=== PATIENT | male | born 1985 | race Caucasian/White ===

== ENCOUNTER 2017-04-11 14:21 | Inpatient (IN) | payer SELFPAY ==
[~2017-04-11] VITALS: Ht 193 cm; Wt 126.0 kg
[2017-04-11] MEDS ORDERED: No Medications (15:00)
[2017-04-11 15:21] LABS: MEAN CORPUSCULAR HEMOGLOBIN 30.6 pg (27.0-33.0); MEAN CORPUSCULAR HGB CONC 35.2 g/dl (32.0-36.5); MEAN CORPUSCULAR VOLUME 86.8 fl (80.0-96.0); PLATELET COUNT, AUTOMATED 283 10^3/uL (150-450); WHITE BLOOD COUNT 9.8 10^3/uL (4.0-10.0)
[2017-04-11 16:06] LABS: ALBUMIN 3.9 GM/DL (3.2-5.2); ALBUMIN/GLOBULIN RATIO 1.11 (1.00-1.93); ALKALINE PHOSPHATASE 100 U/L (45-117); ALT/SGPT 42 U/L (12-78); ANION GAP 4 MEQ/L (8-16); AST/SGOT 22 U/L (7-37); BILIRUBIN,DIRECT 0.3 MG/DL (0.0-0.2); BILIRUBIN,TOTAL 1.4 MG/DL (0.2-1.0); BLOOD UREA NITROGEN 12 MG/DL (7-18); CALCIUM LEVEL 8.8 MG/DL (8.5-10.1); CARBON DIOXIDE LEVEL 32 MEQ/L (21-32); CHLORIDE LEVEL 106 MEQ/L (98-107); CREATININE FOR GFR 1.13 MG/DL (0.70-1.30); GLOMERULAR FILTRATION RATE > 60.0 (>60); GLUCOSE, FASTING 84 MG/DL (70-105); POTASSIUM SERUM 4.5 MEQ/L (3.5-5.1); SODIUM LEVEL 142 MEQ/L (136-145); TOTAL PROTEIN 7.4 GM/DL (6.4-8.2)
[2017-04-11 16:17] LABS: METHADONE URINE NEGATIVE (NEGATIVE)
[2017-04-11 20:40] VITALS: BP 143/79
[2017-04-11] MEDS ORDERED: OLANZapine 5 MG TAB PO ONE (22:00)
[2017-04-11] MEDS ORDERED: MAALOX 30 ML SUSP *UDC PO PRN (22:00)
[2017-04-11] MEDS ORDERED: ACETAMINOPHEN TAB 650MG DOSE (2X325MG) PO PRN (22:00)
[2017-04-11] MEDS ORDERED: MOM 30ML SUSPENSION UDC PO PRN (22:00)
[2017-04-11] MEDS: traZODone 50 MG TAB PO PRN (22:13)
[2017-04-12 06:00] VITALS: BP 109/59
--- NOTE | 2017-04-12 08:53 | HPEPDOC ---
[facility] Medical History & Physical Date of Admission Apr 11, 2017 History and Physical PCP: [facility]. ATTENDING: Dr. Marty Lopez HPI: 31yoM admitted to [facility] for unspecified depressive disorder, being medically examined today. Patient complains of lower abdominal discomfort, states he had diarrhea yesterday 6. Denies fevers or chills. States he has been eating and drinking. Denies urinary complaints. The patient states this is achy pain across his lower abdomen. Denies any fevers, chills, weakness, fatigue, ARELLANO, CP, SOB, cough, palpitations, abdominal pain, N/V/D or changes in bowel or bladder habits. PMHx: Depression Anxiety Substance use PSHX: Denies SOCHX: Resides in: [facility]. Marital Status: Single Kids: 7, ages 1-14. Pt lives with fiance and 7 children. Employment: Unemployed. Tobacco use: Uses e-cigarette ETOH: Monthly 10 drinks or more Illicit Drugs: Marijuana, methamphetamine, crack cocaine. IV Drug Use: Denies Tattoos done unprofessionally: Denies FAMHX: Mother: Alive, well Father: Alive, well Siblings: Alive, well Children: Alive, well Unexpected deaths due to medical reasons: None. ROS: As noted in HPI, otherwise 11pt ROS of systems reviewed and unremarkable . PE: GEN: 31 yo M, appears stated age. Well-nourished, well developed. No acute distress. Alert and oriented x 3. Pleasant, interactive. HEENT: Normocephalic, atraumatic. Pupils are equal, round, and reactive to light. Extraocular movements are intact. No nystagmus appreciated. Sclera are nonicteric. Conjunctiva without injection. Nose midline. Nasal turbinates without bogginess. EACs both patent BL. TMs both visualized and christiansen with good cone of light, no bulging or erythema. No facial asymmetry. Moist mucous membranes. Dentition fair. Pharynx pink and moist, no cobblestoning. Neck supple , trachea midline. No lymphadenopathy or thyromegaly appreciated. CHEST: Regular rate and rhythm, +S1, +S2 LUNGS: Clear to auscultation bilaterally. No wheezes, rales, or rhonchi. Breathing appears symmetric and easy. Patient is speaking in full sentences. No accessory muscle use. ABD: Round, soft, patient with mild tenderness across the lower abdominal area, non-distended. +Bowel sounds throughout. No rebound or guarding. No costovertebral angle tenderness. EXT: Pulses 2+ bilaterally dorsalis pedis and radial. No lower extremity edema appreciated. SKIN: [place], dry, warm. Capillary refill <2sec. No rashes. NEURO: Alert and oriented x 3. Cranial nerves III-XII are intact. No focal deficits appreciated. EKG: Pending A&P: 31yoM admitted to [facility] for unspecified depressive disorder 1. Psych. Plan per Psychiatry. Obtain baseline EKG to assure the safety of psychiatric medications as they can prolong the QT interval. 2. Nicotine dependence. Patch available. 3. Abdominal pain. Update CBC/CMP, amylase, lipase. UA/urine culture. GI panel. CT abdomen and pelvis. 4. Follow up with PCP on discharge. 5. Substance use. Per psychiatry. 6. Staff member Ed present throughout exam. Vital Signs Vital Signs Date Time Temp Pulse Resp B/P (MAP) Pulse Ox O2 Delivery O2 Flow Rate FiO2 04/12/17 06:00 98.7 61 16 109/59 (76) 04/11/17 20:40 98 Room Air Laboratory Data Labs 24H Laboratory Tests 2 04/11/17 15:08: Urine Amphetamines Screen NEGATIVE, Urine Benzodiazepines Screen NEGATIVE, Urine Opiates Screen NEGATIVE, Urine Methadone Screen NEGATIVE, Urine Barbiturates Screen NEGATIVE, Urine Phencyclidine Screen NEGATIVE, Urine Cocaine Metabolite Screen NEGATIVE, Urine Cannabinoids Screen POSITIVEH 04/11/17 15:12: Nucleated Red Blood Cells % (auto) 0.0, Anion Gap 4L, Glomerular Filtration Rate > 60.0, Calcium Level 8.8, Aspartate Amino Transf (AST/SGOT) 22, Alanine Aminotransferase (ALT/SGPT) 42, Alkaline Phosphatase 100, Total Bilirubin 1.4H, Direct Bilirubin 0.3H, Total Protein 7.4, Albumin 3.9, Albumin/Globulin Ratio 1.11, Thyroid Stimulating Hormone (TSH) 1.170, Salicylates Level < 1.7L, Acetaminophen Level < 2.0L, Ethyl Alcohol Level < 0.003 CBC/BMP Laboratory Tests 04/11/17 15:12 Red Blood Count 4.84, Mean Corpuscular Volume 86.8, Mean Corpuscular Hemoglobin 30.6, Mean Corpuscular Hemoglobin Concent 35.2, Red Cell Distribution Width 12.0 Home Medications No Active Prescriptions or Reported Meds Allergies Coded Allergies: Penicillins (Verified Adverse Reaction, Intermediate, seizures, 04/11/17) Jennifer Boyd Apr 12, 2017 08:53
[2017-04-12] MEDS: NICOTINE 21MG/24HR 1 EA TRANSDERMAL TD SCH (09:00)
[2017-04-12 10:01] LABS: BASO # 0.1 10^3/uL (0.0-0.2); BASO % 0.9 % (0.0-1.0); EOS # 0.5 10^3/uL (0.0-0.50); EOS % 7.1 % (0.0-3.0); IMMATURE GRANULOCYTE % 0.1 % (0-0); LYMPH # 2.3 10^3/uL (1.5-4.5); LYMPH % 32.7 % (24.0-44.0); MEAN CORPUSCULAR HEMOGLOBIN 30.4 pg (27.0-33.0); MEAN CORPUSCULAR HGB CONC 34.1 g/dl (32.0-36.5); MEAN CORPUSCULAR VOLUME 89.1 fl (80.0-96.0); MONO # 0.5 10^3/uL (0.0-0.8); MONO % 6.5 % (0.0-5.0); NEUTROPHILS # 3.6 10^3/uL (1.8-7.7); NEUTROPHILS % 52.7 % (36.0-66.0); PLATELET COUNT, AUTOMATED 265 10^3/uL (150-450); RED CELL DISTRIBUTION WIDTH 12.1 % (11.5-14.5); WHITE BLOOD COUNT 6.9 10^3/uL (4.0-10.0)
[2017-04-12 10:50] LABS: ALBUMIN 3.6 GM/DL (3.2-5.2); ALBUMIN/GLOBULIN RATIO 1.03 (1.00-1.93); ALKALINE PHOSPHATASE 89 U/L (45-117); ALT/SGPT 39 U/L (12-78); AMYLASE 45 U/L (25-115); ANION GAP 4 MEQ/L (8-16); AST/SGOT 24 U/L (7-37); BILIRUBIN,TOTAL 1.5 MG/DL (0.2-1.0); BLOOD UREA NITROGEN 12 MG/DL (7-18); CALCIUM LEVEL 9.5 MG/DL (8.5-10.1); CARBON DIOXIDE LEVEL 34 MEQ/L (21-32); CHLORIDE LEVEL 104 MEQ/L (98-107); CREATININE FOR GFR 1.18 MG/DL (0.70-1.30); GLOMERULAR FILTRATION RATE > 60.0 (>60); GLUCOSE, FASTING 77 MG/DL (70-105); POTASSIUM SERUM 4.3 MEQ/L (3.5-5.1); SODIUM LEVEL 142 MEQ/L (136-145); TOTAL PROTEIN 7.1 GM/DL (6.4-8.2)
--- NOTE | 2017-04-12 10:52 | REP ---
CT ABDOMEN PELVIS WITHOUT CONTRAST: 04/12/2017 CLINICAL HISTORY: Periumbilical abdominal pain. TECHNIQUE: Noncontrast imaging through the abdomen pelvis with both coronal and sagittal reconstructions provided. CT ABDOMEN: Lung bases remain clear. Heart is not enlarged. There is no pericardial thickening or effusion. No hiatal hernia. Stomach filled with retained food. There is no splenomegaly or focal splenic lesion. A small accessory splenule is seen anterior to the upper pole of the spleen. No hepatomegaly or focal hepatic lesion. No biliary dilatation. No adjacent ascites. The gallbladder without calcified stone or mass. No stone in the lux hepatis or mass. Pancreas intact. The aorta without aneurysm. There is no periaortic or retroperitoneal lymphadenopathy. Lung window review of all CT slices shows no perforation, free air, abscess or mass with associated air. Small bowel loops grossly intact. No abnormal infiltration of the mesentery . The colon without colitis or diverticulitis. Bone windows show lumbar and lower thoracic levels without compression deformity of destructive lesion. There is no spondylolysis or spondylolisthesis. Visualized ribs intact. CT PELVIS: The pelvis, sacrum, SI joints, hips and lumbosacral junction grossly intact. Pubic rami, symphysis pubis are intact. There are a few tiny bone islands evident. There are no dilated small bowel loops in the pelvis. The colon shows scattered stool and gas throughout the abdomen and pelvis. No colitis or diverticulitis. No abdominal or pelvic adenopathy, ventral or inguinal hernia nor pathologic sized inguinal adenopathy. Distal left colon, sigmoid and rectum intact. IMPRESSION: 1. There is no sign of colitis, diverticulitis, appendicitis, abscess, adenopathy or mass. Solid organs in the upper abdomen intact. No hiatal hernia. Lung bases clear. Bones without acute finding. Some minor degenerative changes at the lumbosacral junction. Nothing acute. Signed by Cameron Puri MD 04/13/2017 05:53 P
[2017-04-12 12:21] VITALS: BP 145/91
[2017-04-12] MEDS ORDERED: LOPERAMIDE 2 MG CAP PO PRN (16:00)
[2017-04-12] MEDS ORDERED: FLUoxetine 10 MG CAP PO ONE (16:00)
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
[2017-04-12 18:00] VITALS: BP 138/72
--- NOTE | 2017-04-12 18:41 | ECGEPIP ---
Stationary ECG Study [facility] Test Date: 2017-04-12 Pat Name: CHERRI HENDERSON Department: Room: [place] [address] Gender: M Table Filler: AMANDA : 1985 Requested By: Jennifer Boyd Order Number: [id number] Reading MD: Tuan Lang Measurements Intervals [place] Rate: 62 P: 51 OH: 158 QRS: 41 QRSD: 97 T: 16 QT: 344 QTc: 350 Interpretive Statements SINUS RHYTHM EARLY REPOLARIZATION Normal for age Electronically Signed On 04-12-2017 18:40:58 EST by Tuan Lang
[2017-04-12 21:00] VITALS: BP 136/82
[2017-04-12] MEDS: traZODone 50 MG TAB PO PRN (21:23)
[2017-04-13 07:00] VITALS: BP 103/62
[2017-04-13] MEDS: NICOTINE 21MG/24HR 1 EA TRANSDERMAL TD SCH (09:00)
[2017-04-13] MEDS: FLUoxetine 10 MG CAP PO SCH (09:31)
--- NOTE | 2017-04-13 09:39 | MHIPNPDOC ---
[facility] Progress Note Progress Note DATE OF SERVICE: 04/13/17 HISTORY: 31 yo M, no reported PMH, no PSH, no prior psychiatric hospitalizations , no prior SA, presents for passive SI. Patient denies having any SI, intent and plan over the last 24 hours. States he slept very well, helped by trazodone. Patient states his mood is alright, remains feeling anxious and depressed, but better than on admission. Wishes to go home, states he wishes to help his fiance out with taking care of the children. Pt has not received prozac yet. States imodium helped with his diarrhea. Discussed issues with insurance and outpt psychiatry. VITAL SIGNS: See below. NEW TEST RESULTS: NA CURRENT MEDICATIONS: See below. MENTAL STATUS EXAMINATION: Speech: normal RRVT Language skills are fluent. Thought processes including: linear. Thought content: appropriate to conversation. Abstract reasoning, and computation: unremarkable. Description of associations: unremarkable. Description of abnormal or psychotic thoughts: none. Judgment: fair. Insight: fair Orientation: intact. Recent and remote memory: unremarkable. Attention span and concentration: unremarkable. Language: unremarkable. Fund of knowledge: unremarkable. Mood: anxious. Affect: dysthymic. DIAGNOSES: 1. MDD 2. TONIO 3. diarrhea, improving ASSESSMENT: patient is depressed with TONIO, but is not suicidal. Has future orientation, wishes to take care of his children, motivated to seek outpatient psychiatric help. - Continue prozac 10 mg daily for mood - Continue PRN trazodone, imodium, tylenol, MOM, Maalox, - Discuss with treatment team about pt's lack of insurance and outpatient psychiatry appt MANAGEMENT PLAN: . TIME SPENT: minutes. Vital Signs Vital Signs Date Time Temp Pulse Resp B/P (MAP) Pulse Ox O2 Delivery O2 Flow Rate FiO2 04/13/17 07:00 98.8 72 16 103/62 (76) 04/11/17 20:40 98 Room Air Laboratory Data 24H Labs Laboratory Tests 2 04/12/17 12:55: Urine Appearance HAZY, Urine Color YELLOW, Urine pH 6.0, Urine Specific [place] 1.018, Urine Protein NEGATIVE, Urine Glucose (UA) NEGATIVE, Urine Ketones NEGATIVE, Urine Urobilinogen 0.2, Urine Bilirubin NEGATIVE, Urine Leukocyte Esterase NEGATIVE, Urine Blood NEGATIVE, Urine Nitrite NEGATIVE, Urine WBC (Auto ) 2, Urine RBC (Auto) 1, Urine Hyaline Casts (Auto) 0, Urine Bacteria (Auto) NEGATIVE, Urine Squamous Epithelial Cells 2, Urine Mucus (Auto) SMALL, Urine Sperm (Auto) Current Medications Current Medications Acetaminophen (Tylenol Tab) 650 mg Q6HP PRN PO HEADACHE or DISCOMFORT; Start 04/11/17 at 22:00; Stop 05/11/17 at 21:59 Al Hydrox/Mg Hydrox/Simethicone (Mylanta) 30 ml Q4HP PRN PO HEARTBURN/ INDIGESTION; Start 04/11/17 at 22:00; Stop 05/11/17 at 21:59 Fluoxetine HCl (PROzac) 10 mg DAILY PO Last administered on 04/13/17 09:31; Start 04/13/17 at 09:00; Stop 05/13/17 at 08:59 Home Med (Med Rec Complete!) ASDIRECTED XX ; Start 04/11/17 at 17:15; Stop 04/11/17 at 17:16; Status DC Loperamide HCl (Imodium) 2 mg ASDIRECTED PRN PO DIARRHEA Last administered on 04/12/17 18:31; Start 04/12/17 at 16:00; Stop 05/12/17 at 15:59 Magnesium Hydroxide (Milk Of Magnesia) 30 ml DAILYPRN PRN PO CONSTIPATION; Start 04/11/17 at 22:00; Stop 05/11/17 at 21:59 Miscellaneous (Unresolved Clarification Entry) SEE LABEL COMMENTS UNRESOLVED XX ; Start 04/12/17 at 00:01; Stop 04/12/17 at 19:37; Status DC Nicotine (Nicoderm Cq 21mg) 1 patch DAILY TD ; Start 04/12/17 at 09:00; Stop 05/12/17 at 08:59 Trazodone HCl (Desyrel) 50 mg QHSP PRN PO INSOMNIA Last administered on 21:23; Start 04/11/17 at 22:00; Stop 05/11/17 at 21:59 Allergies Coded Allergies: Penicillins (Verified Adverse Reaction, Intermediate, seizures, 04/11/17) HANNY RAMOS MD Apr 13, 2017 09:39
[2017-04-13 11:17] VITALS: BP 126/60
[2017-04-13 18:00] VITALS: BP 135/65
[2017-04-13] MEDS: traZODone 50 MG TAB PO PRN (20:36)
[2017-04-13 22:35] VITALS: BP 128/62
[2017-04-14 06:47] VITALS: BP 123/56
[2017-04-14] MEDS: NICOTINE 21MG/24HR 1 EA TRANSDERMAL TD SCH (08:31)
[2017-04-14] MEDS: FLUoxetine 10 MG CAP PO SCH (08:31)
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
[2017-04-14] MEDS ORDERED: PROZ10CA7 PO (11:44)
== END 2017-04-14 13:20 | disposition home or self-care (01) | DRG 756 ==
LOC: M ED 14:21 → M ED INP 17:43 → M PSY 20:43
PROVIDERS: ADMIT Psychiatry & Neurology Psychiatry; ATTEND Psychiatry & Neurology Psychiatry
DX: F41.1 Generalized anxiety disorder (principal); F32.9 Major depressive disorder, single episode, unspecified; Z88.0 Allergy status to penicillin; F17.200 Nicotine dependence, unspecified, uncomplicated; R10.9 Unspecified abdominal pain

== ENCOUNTER → 2017-05-26 | Outpatient (CLI) | payer MEDICAID, SELFPAY | LOC: M OUTALCOH 11:23 | DX: F12.20 Cannabis dependence, uncomplicated (principal); F14.21 Cocaine dependence, in remission ==

== ENCOUNTER → 2022-07-23 | Outpatient (CLI) | payer MEDICAID, MEDICARE ==
[~2022-07-23] MED LIST: No Medications; PROZ10CA7 PO
== END ==
LOC: M RAD 15:03
PROVIDERS: ATTEND Family Medicine
DX: M25.562 Pain in left knee (principal); M54.50 Low back pain, unspecified

== ENCOUNTER → 2024-07-14 | Outpatient (CLI) | payer OTHER ==
[2024-07-14 14:18] LABS: BASO # 0.1 10^3/uL (0.0-0.2); BASO % 0.8 % (0.0-1.0); EOS # 0.2 10^3/uL (0.0-0.5); EOS % 2.4 % (0.0-3.0); HEMATOCRIT 42.1 % (42.0-52.0); HEMOGLOBIN 14.1 g/dl (13.5-17.5); LYMPH # 2.8 10^3/uL (1.5-5.0); LYMPH % 36.8 % (24.0-44.0); MEAN CORPUSCULAR HGB CONC 33.5 g/dl (32.0-36.5); MEAN CORPUSCULAR VOLUME 89.6 fl (80.0-96.0); MONO # 0.5 10^3/uL (0.0-0.8); MONO % 6.2 % (2.0-8.0); NEUTROPHILS # 4.1 10^3/uL (1.5-8.5); NEUTROPHILS % 53.5 % (36.0-66.0); PLATELET COUNT, AUTOMATED 308 10^3/uL (150-450); WHITE BLOOD COUNT 7.6 10^3/uL (4.0-10.0)
[2024-07-14 14:38] LABS: ALBUMIN 3.8 G/DL (3.2-5.2); ALKALINE PHOSPHATASE 93 U/L (40-129); ALT/SGPT 63 U/L (7.0-40); AST/SGOT 40 U/L (<34); BILIRUBIN,TOTAL 1.7 MG/DL (0.3-1.2); BLOOD UREA NITROGEN 16 MG/DL (9-23); CALCIUM LEVEL 9.3 MG/DL (8.5-10.1); CARBON DIOXIDE LEVEL 29 MMOL/L (20-31); CHLORIDE LEVEL 105 MMOL/L (98-107); CHOLESTEROL LEVEL 162 MG/DL (<200); CHOLESTEROL RISK RATIO 4.12 (<5); CREATININE FOR GFR 1.06 MG/DL (0.70-1.30); GLOMERULAR FILTRATION RATE > 60.0 (>60); GLUCOSE, FASTING 83 MG/DL (60-100); HDL CHOLESTEROL 39.3 MG/DL (>40); LDL CHOLESTEROL 98.7 MG/DL (<100); NON-HDL-C 122.7 MG/DL; POTASSIUM SERUM 4.5 MMOL/L (3.5-5.1); SODIUM LEVEL 140 MMOL/L (136-145); TOTAL PROTEIN 7.4 G/DL (5.7-8.2); TRIGLYCERIDES LEVEL 120 MG/DL (<150)
[2024-07-14 14:40] LABS: THYROID STIMULATING HORMONE 1.772 uIU/ML (0.55-4.78)
[2024-07-14 14:52] LABS: HEMOGLOBIN A1c 5.3 % (4.0-6.0)
== END ==
LOC: M LAB 11:55 → M SLEEP HO 11:55
PROVIDERS: ATTEND Family Medicine
DX: R06.83 Snoring (principal)
CPT/HCPCS: 36415; 80053; 80061; 83036; 84439; 84443; 85025; G0399

== ENCOUNTER → 2025-02-05 | Outpatient (CLI) | payer OTHER ==
[~2025-02-05] MED LIST changes: +PROZ10CA11 PO; -PROZ10CA7 PO
== END ==
LOC: M RAD 07:05
PROVIDERS: ATTEND Family Medicine
DX: R74.8 Abnormal levels of other serum enzymes (principal)

== ENCOUNTER → 2025-03-10 | Outpatient (CLI) | payer OTHER | LOC: M SLEEP 20:00 | PROVIDERS: ATTEND Physician Assistant | DX: G47.33 Obstructive sleep apnea (adult) (pediatric) (principal) ==

== ENCOUNTER → 2025-04-26 | Outpatient (REF) | payer OTHER ==
[2025-04-26 19:56] LABS: BASO # 0.1 10^3/uL (0.0-0.2); BASO % 0.6 % (0.0-1.0); EOS # 0.2 10^3/uL (0.0-0.5); EOS % 2.5 % (0.0-3.0); LYMPH # 2.9 10^3/uL (1.5-5.0); LYMPH % 32.5 % (24.0-44.0); MONO # 0.5 10^3/uL (0.0-0.8); MONO % 6.1 % (2.0-8.0); NEUTROPHILS # 5.1 10^3/uL (1.5-8.5); NEUTROPHILS % 58.1 % (36.0-66.0); PLATELET COUNT, AUTOMATED 334 10^3/uL (150-450)
[2025-04-26 20:02] LABS: ALT/SGPT 45.0 U/L (7.0-40); AST/SGOT 29.0 U/L (<34); CALCIUM LEVEL 9.4 MG/DL (8.5-10.1); CARBON DIOXIDE LEVEL 31.0 MMOL/L (20-31); CHLORIDE LEVEL 103.0 MMOL/L (98-107); CREATININE FOR GFR 1.11 MG/DL (0.70-1.30); GLOMERULAR FILTRATION RATE 87.2 (>60); POTASSIUM SERUM 4.5 MMOL/L (3.5-5.1); SODIUM LEVEL 138.0 MMOL/L (136-145)
[2025-04-26 20:04] LABS: FREE T4 1.17 NG/DL (0.89-1.76)
[2025-04-26 20:10] LABS: ESTIMATED AVERAGE GLUCOSE 111.0 MG/DL (60-110)
== END ==
LOC: M SFHCLERA 14:27
PROVIDERS: ATTEND Family Medicine
DX: K76.0 Fatty (change of) liver, not elsewhere classified (principal); G47.33 Obstructive sleep apnea (adult) (pediatric); Z68.39 Body mass index [BMI] 39.0-39.9, adult; E66.812 Obesity, class 2